=== PATIENT | male | born 2000 | race Hispanic/Latino ===

== ENCOUNTER → 2018-07-23 | Outpatient (CLI) | payer BC ==
--- NOTE | 2018-07-23 11:10 | Diagnostic Imaging Report ---
Exam: Left footCT without contrast. History: Nondisplaced fracture of fifth metatarsal. Foot pain. Trauma. Comparison:None Technique: Utilizing a 64-slice multidetector CT, axial imaging was performed through the left foot without IV contrast. Multiplanar reformation was performed. All CT scans are performed using radiation dose reduction techniques. Technical factors are evaluated and adjusted to ensure appropriate moderation of exposure. Automated dose management technology is applied to adjust the radiation dose to minimize exposure while achieving a diagnostic-quality image. Findings: There is a nondisplaced extra-articular transverse fracture through the proximal shaft of the left fifth metatarsal best seen on series 4 image 62, series 501 image 74 and series 500 image 56 and 57. This is located 2.5 cm distal to the proximal tip of the fifth metatarsal. There is mild adjacent soft tissue edema and there is cortical sclerosis in the region consistent with partial healing. The remainder of the visualized osseous structures are intact. No talar dome osteochondral lesion is seen. No radiopaque foreign body is seen. The visualized muscles are normal in size and morphology. Impression: Nondisplaced extra-articular transverse fracture through the proximal shaft of the left fifth metatarsal. This is located 2.5 cm distal to the proximal tip of the fifth metatarsal. There is mild adjacent soft tissue edema and there is cortical sclerosis in the region consistent with partial healing. Signed by: Dr. Harvey Miles M.D. on 07/23/2018 11:07 AM
== END ==
LOC: CT 09:59
PROVIDERS: ATTEND Specialist
DX: S92.355D Nondisplaced fracture of fifth metatarsal bone, left foot, subsequent encounter for fracture with routine healing (principal)